=== PATIENT | male | born 1995 ===

== ENCOUNTER → 2021-02-19 09:29 | Outpatient (CLI) | payer OTHER, SELFPAY ==
[2021-02-19 12:38] LABS: COVID19 -Nasal RAPID Negative (Negative)
== END ==
PROVIDERS: PCP Family Medicine; Visit Provider Family Medicine Sleep Medicine
DX: Z20.822 Contact with and (suspected) exposure to COVID-19 (principal)
CPT/HCPCS: 87635; C9803